=== PATIENT | female | born 1995 | race Hispanic/Latino ===

== ENCOUNTER 2019-09-04 20:21 | Emergency (ER) | payer OTHER ==
--- NOTE | 2019-09-04 21:16 | Event Note ---
ED Screening Note Date of service: 09/04/19 Time: 21:13 ED Screening Note: This is a 24 y.o. F. that presents to the ER with sharp abdominal pain that started today. LMP 07/24/2018 Reports nausea earlier today now resolved. Nonsmoker This initial assessment/diagnostic orders/clinical plan/treatment(s) is/are subject to change based on patients health status, clinical progression and re- assessment by fellow clinical providers in the ED. Further treatment and workup at subsequent clinical providers discretion. Patient/guardian urged not to elope from the ED as their condition may be serious if not clinically assessed and managed. Initial orders include: Labs
[2019-09-04 21:33] LABS: Bilirubin,Urine NEG (Negative); Blood,Urine SM (Negative); Color,Urine Straw (Yellow); Mucus,Urine FEW /HPF; Protein,Urine <15 mg/dL mg/dL (Negative); Urobilinogen,Urine < 2.0 mg/dL (<2.0)
[2019-09-04 21:56] LABS: Eosinophils % (Auto) 0.5 % (0.0-4.3); Hematocrit 36.6 % (30.3-42.9); Hemoglobin 12.8 gm/dl (10.1-14.3); Lymphocytes % (Auto) 25.4 % (13.4-35.0); Mean Corpuscular HGB Conc 35 % (30-34); Mean Corpuscular Volume 92 fl (79-97); Monocytes % (Auto) 6.3 % (0.0-7.3); Platelet Count 307 K/mm3 (140-440); Red Blood Count 3.98 M/mm3 (3.65-5.03); Red Cell Distribution Width 13.4 % (13.2-15.2)
[2019-09-04 21:57] LABS: Basophils # (Auto) 0.1 K/mm3 (0.0-0.1); Basophils % (Auto) 0.7 % (0.0-1.8); Eosinophils # (Auto) 0.1 K/mm3 (0.0-0.4); Lymphocytes # (Auto) 2.4 K/mm3 (1.2-5.4); Monocytes # (Auto) 0.6 K/mm3 (0.0-0.8)
[2019-09-04] MEDS ORDERED: METOCLOPRAMIDE 10 MG/2 ML INJ IV ONE (22:06)
[2019-09-04] MEDS ORDERED: diphenhydrAMINE 50 MG/ML VIAL IV ONE (22:06)
[2019-09-04 22:20] LABS: Alanine Aminotransferase 12 units/L (7-56); Albumin 4.8 g/dL (3.9-5); BUN/Creatinine Ratio 23; Blood Urea Nitrogen 9 mg/dL (7-17); Calcium 9.7 mg/dL (8.4-10.2); Hemolysis Index 7
--- NOTE | 2019-09-04 23:35 | Ultrasound Report ---
US OB <= 14 weeks fetus, US OB transvaginal INDICATION / CLINICAL INFORMATION: pelvic pain and . COMPARISON: None available. FINDINGS: Transabdominal and transvaginal imaging was performed. Uterus measures 6.6 x 4.3 x 5.6 cm. Endometrial echo complex measures 11-12 mm. No endometrial fluid collections are seen. The ovaries are unremarkable. There is free fluid pelvis. There is a nonspecific 2.1 cm heterogeneous lesion in the right adnexa. IMPRESSION: 1. No sonographic evidence of intrauterine . This could be due to very early . 2. 2.1 cm heterogeneous right adnexal lesion. There is also free fluid in the cul-de-sac. Ectopic/tub al cannot be excluded. Correlation with beta hCG levels is recommended. CRITICAL RESULT: Time of Discovery: 10:25 PM Time of Communication: 10:28 PM Licensed Practitioner Receiving Report: Dr. Johnston Read Back Performed: Yes. Signer Name: Daniele Diaz MD Signed: 09/04/2019 11:31 PM Workstation Name: [id number]
--- NOTE | 2019-09-05 00:50 | Emergency Department Report ---
ED Abdominal Pain HPI - General Chief Complaint: Abdominal Pain Stated Complaint: ABD PAIN Time Seen by Provider: 09/04/19 21:13 Source: patient Mode of arrival: Ambulatory Limitations: No Limitations - History of Present Illness Initial Comments: 24-year-old female presents emergency department complaining of continued abdominal pain associated with an episode of nausea and vomiting. States the nausea vomiting and pain occurred after she had taken Zithromax for a chlamydia infection. She reports no vaginal discharge or vaginal bleeding no painful urination no increased urinary urgency or decreased urinary production. States she seen her MORTGAGE LOAN COORDINATOR about 4 to 5 days ago and IUP could not be confirmed due to the early . She has a follow-up appointment this Saturday. She reports no vaginal discharge or vaginal bleeding no trauma. MD Complaint: abdominal pain Location: diffuse Radiation: none Severity: mild, moderate Quality: aching, dull Consistency: constant Improves With: nothing Worsens With: nothing Associated Symptoms: denies other symptoms - Related Data Previous Rx's Medication Instructions Recorded Last Taken Type Doxylamine Succinate/Vit B6 1 each PO TID PRN #30 tablet. 09/05/19 Unknown Rx [Diclegis Dr 10-10 mg Tablet] Allergies Allergy/AdvReac Type Severity Reaction Status Date / Time No Known Allergies Allergy Verified 09/04/19 20:27 ED Review of Systems ROS: Stated complaint: ABD PAIN Other details as noted in HPI Comment: All other systems reviewed and negative ED Past Medical Hx - Past Medical History Previous Medical History?: No - Surgical History Past Surgical History?: No - Social History Smoking Status: Never Smoker Substance Use Type: None - Medications Home Medications: Home Medications Medication Instructions Recorded Confirmed Last Taken Type Doxylamine Succinate/Vit B6 1 each PO TID PRN #30 tablet. 09/05/19 Unknown Rx [Diclegis Dr 10-10 mg Tablet] ED Physical Exam - General Limitations: No Limitations General appearance: alert, in no apparent distress - Head Head exam: Present: atraumatic, normocephalic - Eye Eye exam: Present: normal appearance - ENT ENT exam: Present: mucous membranes moist - Neck Neck exam: Present: normal inspection - Respiratory Respiratory exam: Present: normal lung sounds bilaterally. Absent: respiratory distress - Cardiovascular Cardiovascular Exam: Present: regular rate, normal rhythm. Absent: systolic murmur, diastolic murmur, rubs, gallop - GI/Abdominal GI/Abdominal exam: Present: soft, tenderness (To the upper and lower), normal bowel sounds, other (No tenderness at McBurney's. No Rovsing. No Campos Simpson.). Absent: guarding ( abdomen), rebound, rigid - Extremities Exam Extremities exam: Present: normal inspection, full ROM - Back Exam Back exam: Present: normal inspection - Neurological Exam Neurological exam: Present: alert, oriented X3 - Psychiatric Psychiatric exam: Present: normal affect, normal mood - Skin Skin exam: Present: warm, dry, intact, normal color. Absent: rash ED Course Vital Signs 09/04/19 20:29 Temperature 97.9 F Pulse Rate 89 Respiratory 16 Rate Blood Pressure 115/62 O2 Sat by Pulse 99 Oximetry ED Medical Decision Making - Lab Data Result diagrams: 09/04/19 21:30 09/04/19 21:30 - Radiology Data Radiology results: report reviewed [facility] [address] [place] [address] Ultrasound Report Signed Patient: MODESTO MCKENNA MR#: [id number] 26 : 1995 Acct:[id number] Age/Sex: 24 / F ADM Date: 09/04/19 Loc: ED Attending Dr: Ordering Physician: ALFREDO LAGUNA Date of Service: 09/04/19 Procedure(s): US OB transvaginal Accession Number(s): [id number] cc: ALFREDO LAGUNA US OB <= 14 weeks fetus, US OB transvaginal INDICATION / CLINICAL INFORMATION: pelvic pain and . COMPARISON: None available. FINDINGS: Transabdominal and transvaginal imaging was performed. Uterus measures 6.6 x 4.3 x 5.6 cm. Endometrial echo complex measures 11-12 mm. No endometrial fluid collections are seen. The ovaries are unremarkable. There is free fluid pelvis. There is a nonspecific 2.1 cm heterogeneous lesion in the right adnexa. IMPRESSION: 1. No sonographic evidence of intrauterine . This could be due to very early . 2. 2.1 cm heterogeneous right adnexal lesion. There is also free fluid in the cul-de-sac. Ectopic/tubal cannot be excluded. Correlation with beta hCG levels is recommended. CRITICAL RESULT: Time of Discovery: 10:25 PM Time of Communication: 10:28 PM Licensed Practitioner Receiving Report: Dr. Johnston Read Back Performed: Yes. Signer Name: Daniele Diaz MD Signed: 09/04/2019 11:31 PM Workstation Name: [id number] Transcribed By: ENRIQUE Dictated By: Daniele Diaz MD Electronically Authenticated By: Daniele Diaz MD Signed Date/Time: 09/04/191 DD/ 23 TD/TT: - Medical Decision Making This patient presents with abdominal pain of unclear etiology. Their evaluation has not identified a emergent etiology for the abdominal pain. Specifically, given the very benign exam, normal laboratory studies, and lack of significant risk factors, I have a very low suspicion for appendicitis, ischemic bowel, bowel perforation, or any other life threatening disease. I have discussed with the patient the level of uncertainty with undifferentiated abdominal pain and clearly explained the need to follow-up as noted on the discharge instructions, or return to the Emergency Department immediately if the pain worsens, develops fever, persistent and uncontrollable vomiting, or for any new symptoms or concerns. I discussed with the patient that this presentation today for abdominal pain could represent a significant risk for an acute abdominal process. Although the tests in the ED were essentially normal, there is still a possibility of a process such as appendicitis, diverticulitis, cholecystitis, ulcer, early bowel obstruction, mesenteric ischemia, kidney stone, or even kidney infection which could subsequently cause disability or . The patient understands that they must return within 24 hours for a recheck or see their physician within 24 hours for re-exam due to the possibility of significant surgical or medical process. Considered ectopic , spectrum of miscarriage/ (threatened, inevitable, incomplete, complete, septic) as well as causes of female-specific abdominal pain unrelated to (e.g., pelvic inflammatory disease with or without tubo-ovarian abscess, [id number], etc.). Patient well-appearing with normal vital signs. Patient is Rh negative and therefore requires/does not require RhoGAM. Gave patient strict return precautions for worsening pain, increased vaginal bleeding, fever (temperature above 100.4F), lightheadedness/syncope or other concerns. For consideration of ectopic , the quantitative beta hCG was 1850 and therefore was above/below the discriminatory zone of 1,500 mIU/mL. Transvaginal/transabdominal ultrasound demonstrated a 2.1 cm heterogeneous right adnexal lesion with mild free fluid around the sac. Ectopic tubal cannot be excluded but based on the presentation not likely advised for a serial follow-up. Patient will follow up in 48 hours with their display mechanic. Advised patient to keep the appointment with her [place] M[employer] LO[employer] COORDINATOR on Saturday Critical care attestation.: If time is entered above; I have spent that time in minutes in the direct care of this critically ill patient, excluding procedure time. ED Disposition Clinical Impression: Abdominal pain in , related nausea, antepartum Disposition: - TO HOME OR SELFCARE Is pt being admited?: No Does the pt Need Aspirin: No Condition: Stable Instructions: Abdominal Pain (ED) Additional Instructions: Please keep your appointment with your [place] MORTGAGE LOAN COORDINATOR on Saturday for reevaluation. Copies of your ultrasound report was provided and we discussed in detail the findings and the need for you to maintain this follow-up. You have been advised to return emergency department should you feel that your condition is worsening before that time. Prescriptions: Doxylamine Succinate/Vit B6 [Torie Rodriguez 10-10 mg Tablet] 1 each PO TID PRN #30 tablet.dr DURÁN Reason: Nausea And Vomiting Referrals: [facility] [Other] - 09/07/19
[2019-09-05 01:19] VITALS: BP 109/64
== END 2019-09-05 01:20 | disposition home or self-care (01) ==
LOC: ED 20:21
DX: O26.891 Other specified pregnancy related conditions, first trimester (principal); O21.9 Vomiting of pregnancy, unspecified; R10.9 Unspecified abdominal pain; Z79.899 Other long term (current) drug therapy; Z3A.01 Less than 8 weeks gestation of pregnancy
CPT/HCPCS: 36415; 76801; 76817; 80053; 81001; 83690; 84702; 84703; 85025; 86850; 86900; 86901; J1200; J2765